=== PATIENT | male | born 1935 | race Caucasian/White ===

== ENCOUNTER 2017-07-21 09:56 | Emergency (ER) | payer MEDICARE, MEDICAID ==
[~2017-07-21] VITALS: Ht 175.3 cm; Wt 85.0 kg
[~2017-07-21 09:56] MED LIST: NOVONP2 SQ
[2017-07-21 10:03] VITALS: BP 186/83; PULSE 88; RESP 16; TEMP 98.9; O2SAT 98
[2017-07-21] MEDS ORDERED: NOVONP2 SQ (10:10)
[2017-07-21] MEDS ORDERED: NAPR500T2 PO (11:23)
[2017-07-21] MEDS ORDERED: TRAM50 PO (11:23)
--- NOTE | 2017-07-21 11:23 | PD ---
HPI Chief Complaint: Musculoskeletal Complaint Time Seen by Provider: 10:37 Travel History International Travel<30 days: No Contact w/Intl Traveler<30days: No Traveled to known affect area: No History of Present Illness HPI This is an 82-year-old male here with left leg pain. He reports the pain starts in his low back gluteal region and radiates into the thigh. Symptom severity is moderate. No aggravating or alleviating factors. Has not attempted any [id number] remedies. 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) Psychiatric: No Reproductive: No Respiratory: No Thyroid Disease: No Tetanus Vaccination: Unknown Past Surgical History Abdominal Surgery: Yes ([facility] INGUINAL HERNIA REPAIR 10-15 YEARS AGO) AICD: No Eye Surgery: Yes ([facility] CATARACT SURGERIES 2009) Joint Replacement: No Pacemaker: No Social History Alcohol Use: No Tobacco Use: No Substance Use: No Allergies-Medications (Allergen,Severity, Reaction): Coded Allergies: penicillin G (Unverified Allergy, Intermediate, HIVES, RASH, 07/21/17) Reported Meds & Prescriptions Reported Meds & Active Scripts Active Reported Novolin N Inj (Insulin Human NPH) 1,000 Unit/10 Ml Vial 15 Units SQ TID Review of Systems Except as stated in HPI: all other systems reviewed are Neg General / Constitutional: No: Fever Eyes: No: Visual changes HENT: No: Headaches Cardiovascular: No: Chest Pain or Discomfort Respiratory: No: Shortness of Breath Gastrointestinal: No: Abdominal Pain Genitourinary: No: Dysuria Physical Exam Narrative GENERAL: Alert and well-appearing 82-year-old male SKIN: Warm and dry. HEAD: Normocephalic. EYES: No scleral icterus. No injection or drainage. NECK: Supple, trachea midline. No JVD or lymphadenopathy. CARDIOVASCULAR: Regular rate and rhythm without murmurs, gallops, or rubs. RESPIRATORY: Breath sounds equal bilaterally. No accessory muscle use. GASTROINTESTINAL: Abdomen soft, non-tender, nondistended. MUSCULOSKELETAL: No cyanosis, or edema. Normal strength and sensation in the lower extremities. 2+ DTRs BACK: Nontender cervical, thoracic, lumbar spine. Without obvious deformity. No CVA tenderness. + Tenderness to the left gluteal and posterior lateral thigh. Positive straight leg raise on the left Data Data Last Documented VS Vital Signs Date Time Temp Pulse Resp B/P (MAP) Pulse Ox O2 Delivery O2 Flow Rate FiO2 07/21/17 10:03 98.9 88 16 186/83 (117) 98 MDM Medical Decision Making Medical Screen Exam Complete: Yes Emergency Medical Condition: Yes Differential Diagnosis Sciatica, lumbar strain, herniated disc Narrative Course 82-year-old male here with sciatica pain. He has a normal neurologic exam. he is well-appearing. No history of kidney disease. He will be treated with NSAIDs and Ultram. Diagnosis Primary Impression: Sciatica Qualified Codes: M54.32 - Sciatica, left side Referrals: Primary Care Physician Additional Instructions: Medication as directed. Follow-up the primary doctor. Scripts Naproxen (Naproxen) 500 Mg Tab 500 MG PO BID, #30 TAB 0 Refills TAKE WITH FOOD Prov: Nataliya Ortiz 07/21/17 Tramadol (Ultram) 50 Mg Tab 50 MG PO Q6H Y for PAIN, #12 TAB 0 Refills Prov: Nataliya Ortiz 07/21/17 Disposition: 01 DISCHARGE HOME Condition: Stable Nataliya Ortiz July 21, 2017 11:23
== END 2017-07-21 11:32 | disposition home or self-care (01) ==
LOC: PHEFT 09:56
DX: M54.32 Sciatica, left side (principal); E11.9 Type 2 diabetes mellitus without complications; I10 Essential (primary) hypertension; G62.9 Polyneuropathy, unspecified; Z88.0 Allergy status to penicillin; Z79.4 Long term (current) use of insulin
CPT/HCPCS: 99283